=== PATIENT | female | born 1975 | race Caucasian/White ===

== ENCOUNTER 2017-01-10 14:07 | Emergency (ER) | payer OTHER ==
[2017-01-10 15:23] LABS: BASOPHIL % 0.4 % (0-2); PLATELET COUNT 170 x10^3mcL (130-400)
[2017-01-10 15:25] LABS: RED CELL DISTRIBUTION WIDTH 14.6 % (11.5-14.5)
[2017-01-10 15:44] LABS: ALBUMIN 3.5 g/dL (3.4-5.0); ALKALINE PHOSPHATASE 75 U/L (46-116); ALT/SGPT 19 U/L (14-59); AST/SGOT 14 U/L (15-37); BILIRUBIN TOTAL 0.29 mg/dL (0.20-1.00); CALCIUM 8.5 mg/dL (8.5-10.1); CARBON DIOXIDE 29.2 mmol/L (21-32); CHLORIDE SERUM 103 mmol/L (98-107); CREATININE SERUM 0.7 mg/dL (0.6-1.0); GFR1 > 60 mL/min; GLUCOSE SERUM 99 mg/dL (74-106); SODIUM SERUM 141 mmol/L (136-145); T4(THYROXINE) 7.7 ug/dL (4.7-13.3); TOTAL PROTEIN, SERUM 7.1 g/dL (6.4-8.2)
[2017-01-10 15:48] LABS: POTASSIUM SERUM 2.9 mmol/L (3.5-5.1)
[2017-01-10 16:55] VITALS: BP 133/86
== END 2017-01-10 16:55 | disposition home or self-care (01) ==
LOC: ED 14:07
PROVIDERS: Emergency Medicine
DX: N93.8 Other specified abnormal uterine and vaginal bleeding (principal); E87.6 Hypokalemia; I10 Essential (primary) hypertension; E66.9 Obesity, unspecified; Z86.32 Personal history of gestational diabetes
CPT/HCPCS: J7030

== ENCOUNTER 2018-01-10 14:24 | Emergency (ER) | payer MEDICAID ==
[~2018-01-10] VITALS: Ht 167.6 cm; Wt 116.6 kg
[2018-01-10 14:38] VITALS: Ht 167.6 cm; Wt 116.6 kg
[2018-01-10 16:00] LABS: microscopic required? YES; urine erythrocyte 3+ (NEGATIVE)
[2018-01-10 16:03] LABS: BASOPHIL % 0.5 % (0-2); PLATELET COUNT 184 x10^3mcL (130-400)
[2018-01-10 16:05] LABS: RED CELL DISTRIBUTION WIDTH 15.3 % (11.5-14.5)
[2018-01-10 16:08] LABS: CALCIUM 8.7 mg/dL (8.5-10.1); CARBON DIOXIDE 28.9 mmol/L (21-32); CHLORIDE SERUM 103 mmol/L (98-107); CREATININE SERUM 0.9 mg/dL (0.6-1.0); GFR1 > 60 mL/min; GLUCOSE SERUM 113 mg/dL (74-106); POTASSIUM SERUM 3.2 mmol/L (3.5-5.1); SODIUM SERUM 140 mmol/L (136-145)
[2018-01-10 16:12] LABS: ALBUMIN 3.6 g/dL (3.4-5.0); ALKALINE PHOSPHATASE 73 U/L (46-116); ALT/SGPT 20 U/L (14-59); AST/SGOT 14 U/L (15-37); BILIRUBIN TOTAL 0.7 mg/dL (0.20-1.00); LIPASE 57 IU/L (73-393)
[2018-01-10 16:14] LABS: AMYLASE 23 U/L (25-115)
[2018-01-10 16:24] LABS: TOTAL PROTEIN, SERUM 7.4 g/dL (6.4-8.2)
[2018-01-10 18:29] VITALS: BP 114/73
== END 2018-01-10 18:29 | disposition home or self-care (01) ==
LOC: ED 14:24
PROVIDERS: Specialist
DX: R10.2 Pelvic and perineal pain (principal); N89.8 Other specified noninflammatory disorders of vagina; I10 Essential (primary) hypertension
CPT/HCPCS: 36415; 83880; 87491; 87591

== ENCOUNTER 2018-03-18 10:38 | Emergency (ER) | payer MEDICAID ==
[~2018-03-18] VITALS: Ht 162.6 cm; Wt 116.1 kg
[2018-03-18 10:58] VITALS: Ht 162.6 cm; Wt 116.1 kg
[2018-03-18 14:11] VITALS: BP 116/70
== END 2018-03-18 14:11 | disposition home or self-care (01) ==
LOC: ED 10:38
DX: K52.9 Noninfective gastroenteritis and colitis, unspecified (principal); I10 Essential (primary) hypertension
CPT/HCPCS: J1885; Q0162

== ENCOUNTER 2018-10-07 22:09 | Emergency (ER) | payer MEDICAID ==
[~2018-10-07] VITALS: Ht 172.7 cm; Wt 120.2 kg
[2018-10-07 22:27] VITALS: Ht 172.7 cm; Wt 120.2 kg
[2018-10-07 23:57] LABS: BASOPHIL % 0.4 % (0-2); PLATELET COUNT 207 x10^3mcL (130-400); RED CELL DISTRIBUTION WIDTH 14.8 % (11.5-14.5)
[2018-10-08 00:14] LABS: ALBUMIN 3.5 g/dL (3.4-5.0); ALKALINE PHOSPHATASE 75 U/L (46-116); ALT/SGPT 32 U/L (14-59); AMYLASE 32 U/L (25-115); AST/SGOT 21 U/L (15-37); BILIRUBIN TOTAL 0.2 mg/dL (0.20-1.00); CALCIUM 9.1 mg/dL (8.5-10.1); CARBON DIOXIDE 29.9 mmol/L (21-32); CHLORIDE SERUM 102 mmol/L (98-107); CREATININE SERUM 0.7 mg/dL (0.6-1.0); GFR1 > 60 mL/min; GLUCOSE SERUM 124 mg/dL (74-106); LIPASE 85 IU/L (73-393); SODIUM SERUM 139 mmol/L (136-145); TOTAL PROTEIN, SERUM 7.6 g/dL (6.4-8.2)
[2018-10-08 01:03] VITALS: BP 137/67
== END 2018-10-08 01:08 | disposition home or self-care (01) ==
LOC: ED 22:09
PROVIDERS: Emergency Medicine
DX: N39.0 Urinary tract infection, site not specified (principal); M25.511 Pain in right shoulder; I10 Essential (primary) hypertension
CPT/HCPCS: J2405; J7030

== ENCOUNTER 2018-12-19 09:08 | Emergency (ER) | payer MEDICAID ==
[~2018-12-19] VITALS: Ht 160 cm; Wt 114.3 kg
[2018-12-19 09:17] VITALS: Ht 160 cm; Wt 114.3 kg
[2018-12-19 10:37] VITALS: BP 124/87
== END 2018-12-19 10:38 | disposition home or self-care (01) ==
LOC: ED 09:08
DX: M62.838 Other muscle spasm (principal); I10 Essential (primary) hypertension
CPT/HCPCS: J1885; Q0092

== ENCOUNTER 2019-06-15 08:28 | Emergency (ER) | payer MEDICAID ==
[~2019-06-15] VITALS: Ht 162.6 cm; Wt 118.8 kg
[2019-06-15 08:31] VITALS: Ht 162.6 cm; Wt 118.8 kg
[2019-06-15 10:51] LABS: BASOPHIL % 0.4 % (0-2); PLATELET COUNT 182 x10^3mcL (130-400)
[2019-06-15 11:04] LABS: RED CELL DISTRIBUTION WIDTH 14.7 % (11.5-14.5)
[2019-06-15 12:08] LABS: CALCIUM 9.1 mg/dL (8.5-10.1); CHLORIDE SERUM 105 mmol/L (98-107); CREATININE SERUM 0.6 mg/dL (0.6-1.0); GFR1 > 60 mL/min; GLUCOSE SERUM 111 mg/dL (74-106); POTASSIUM SERUM 4.1 mmol/L (3.5-5.1); SODIUM SERUM 142 mmol/L (136-145)
[2019-06-15 12:31] VITALS: BP 134/75
== END 2019-06-15 12:31 | disposition home or self-care (01) ==
LOC: ED 08:28
PROVIDERS: Emergency Medicine
DX: N93.9 Abnormal uterine and vaginal bleeding, unspecified (principal); I10 Essential (primary) hypertension
CPT/HCPCS: 36415; J1050

== ENCOUNTER 2019-07-26 12:23 | Emergency (ER) | payer MEDICAID ==
[~2019-07-26] VITALS: Ht 167.6 cm; Wt 117.5 kg
[2019-07-26 12:49] VITALS: Ht 167.6 cm; Wt 117.5 kg
[2019-07-26 13:29] LABS: BASOPHIL % 0.6 % (0-2); PLATELET COUNT 180 x10^3mcL (130-400); RED CELL DISTRIBUTION WIDTH 14.5 % (11.5-14.5)
[2019-07-26 16:21] VITALS: BP 134/78
== END 2019-07-26 16:21 | disposition home or self-care (01) ==
LOC: ED 12:23
DX: N93.8 Other specified abnormal uterine and vaginal bleeding (principal); I10 Essential (primary) hypertension
CPT/HCPCS: 36415

== ENCOUNTER 2019-10-23 08:55 | Emergency (ER) | payer MEDICAID ==
[~2019-10-23] VITALS: Ht 162.6 cm; Wt 120.7 kg
[2019-10-23 09:18] VITALS: BP 148/83; Ht 162.6 cm; Wt 120.7 kg
[2019-10-23 09:55] LABS: BASOPHIL % 0.8 % (0-2); PLATELET COUNT 170 x10^3mcL (130-400); RED CELL DISTRIBUTION WIDTH 14.3 % (11.5-14.5)
[2019-10-23 10:12] LABS: CALCIUM 8.6 mg/dL (8.5-10.1); CARBON DIOXIDE 31.8 mmol/L (21-32); CHLORIDE SERUM 103 mmol/L (98-107); CREATININE SERUM 0.8 mg/dL (0.6-1.0); GFR1 > 60 mL/min; GLUCOSE SERUM 189 mg/dL (74-106); POTASSIUM SERUM 3.3 mmol/L (3.5-5.1); SODIUM SERUM 141 mmol/L (136-145)
[2019-10-23 10:16] LABS: ALBUMIN 3.4 g/dL (3.4-5.0); ALKALINE PHOSPHATASE 67 U/L (46-116); ALT/SGPT 111 U/L (14-59); AST/SGOT 70 U/L (15-37); BILIRUBIN TOTAL 0.4 mg/dL (0.20-1.00); LIPASE 49 IU/L (73-393); TOTAL PROTEIN, SERUM 7.3 g/dL (6.4-8.2)
== END 2019-10-23 12:00 | disposition home or self-care (01) ==
LOC: ED 08:55
PROVIDERS: Emergency Medicine
DX: K80.20 Calculus of gallbladder without cholecystitis without obstruction (principal); I10 Essential (primary) hypertension
CPT/HCPCS: 36415; Q0092

== ENCOUNTER 2019-10-25 16:20 | Emergency (ER) | payer MEDICAID ==
[~2019-10-25] VITALS: Ht 165.1 cm; Wt 100.2 kg
[2019-10-25 16:49] VITALS: Ht 165.1 cm; Wt 100.2 kg
[2019-10-25 18:56] LABS: BASOPHIL % 0.6 % (0-2); PLATELET COUNT 167 x10^3mcL (130-400); RED CELL DISTRIBUTION WIDTH 14.2 % (11.5-14.5)
[2019-10-25 19:11] LABS: CALCIUM 9.1 mg/dL (8.5-10.1); CARBON DIOXIDE 28.9 mmol/L (21-32); CHLORIDE SERUM 103 mmol/L (98-107); CREATININE SERUM 0.8 mg/dL (0.6-1.0); GFR1 > 60 mL/min; GLUCOSE SERUM 214 mg/dL (74-106); POTASSIUM SERUM 3.4 mmol/L (3.5-5.1); SODIUM SERUM 137 mmol/L (136-145)
[2019-10-25 19:15] LABS: ALKALINE PHOSPHATASE 66 U/L (46-116); ALT/SGPT 169 U/L (14-59); AST/SGOT 96 U/L (15-37); BILIRUBIN TOTAL 0.21 mg/dL (0.20-1.00); LIPASE 81 IU/L (73-393); TOTAL PROTEIN, SERUM 7.1 g/dL (6.4-8.2)
[2019-10-25 19:16] LABS: ALBUMIN 3.3 g/dL (3.4-5.0); AMYLASE 23 U/L (25-115)
[2019-10-25 20:34] VITALS: BP 125/68
== END 2019-10-25 20:34 | disposition home or self-care (01) ==
LOC: ED 16:20
PROVIDERS: Emergency Medicine
DX: K80.50 Calculus of bile duct without cholangitis or cholecystitis without obstruction (principal); K80.20 Calculus of gallbladder without cholecystitis without obstruction; I10 Essential (primary) hypertension
CPT/HCPCS: C9113; J1885; J2405; J3010; J7030

== ENCOUNTER 2020-02-20 11:02 | Emergency (ER) | payer MEDICAID ==
[~2020-02-20] VITALS: Ht 162.6 cm; Wt 111.1 kg
[2020-02-20 11:14] VITALS: Ht 162.6 cm; Wt 111.1 kg
[2020-02-20 12:43] VITALS: BP 131/78
== END 2020-02-20 12:43 | disposition home or self-care (01) ==
LOC: ED 11:02
DX: M54.12 Radiculopathy, cervical region (principal); I10 Essential (primary) hypertension
CPT/HCPCS: J1885